=== PATIENT | male | born 1985 | race Caucasian/White ===

== ENCOUNTER 2018-07-24 21:13 | Emergency (ER) | payer BC, OTHER ==
--- NOTE | 2018-07-24 21:25 | PDOC ---
History of Present Illness - General History Source: Patient Exam Limitations: No Limitations - History of Present Illness Initial Comments: 07/24/18 21:49 The patient is a 33 year old male, with a significant PMH of acid reflux, who presents to the emergency department with dysphagia that began tonight. The patient states he was at a [employer] restaurant with his family when he choked on some rice. The patient states he vomited 3x and noticed rice came up. He currently reports a discomfort to his esophagus and feels like there is a lump in his throat. He also notes difficulty drinking water. The patient denies chest pain, shortness of breath, headache and dizziness.Denies fever, chills, nausea, vomit, diarrhea and constipation. Allergies: NKDA Past surgical history: None reported Social history: Drinks alcohol socially but denies alcohol and recreational use PCP:David Raya <Estuardo Roberto - Last Filed: 07/24/18 22:37> <Gunjan Hernandez - Last Filed: 07/25/18 04:09> - General Chief Complaint: Dysphagia Stated Complaint: FEELS SOMETHING STUCK IN THROAT Time Seen by Provider: 07/24/18 21:16 Past History <Estuardo Roberto - Last Filed: 07/24/18 22:37> - Past Medical History Asthma: No COPD: No Diabetes: No HTN: No Hypercholesterolemia: No - Immunization History Td Vaccination: No - Suicide/Smoking/Psychosocial Hx Smoking Status: No Smoking History: Never smoked Number of Cigarettes Smoked Daily: 0 <Gunjan Hernandez - Last Filed: 07/25/18 04:09> - Past Medical History Allergies/Adverse Reactions: Allergies Allergy/AdvReac Type Severity Reaction Status Date / Time No Known Allergies Allergy Unverified 07/14/12 01:46 Home Medications: Ambulatory Orders Pantoprazole Sodium [Protonix -] 40 mg PO DAILY #20 tablet.ec 07/24/18 Review of Systems - Review of Systems Able to Perform ROS?: Yes Comments:: 07/24/18 21:50 GENERAL/CONSTITUTIONAL: No fever or chills. No weakness. HEAD, EYES, EARS, NOSE AND THROAT: +Throat discomfort.No change in vision. No ear pain or discharge. CARDIOVASCULAR: No chest pain or shortness of breath. RESPIRATORY: No cough, wheezing, or hemoptysis. GASTROINTESTINAL: No nausea, vomiting, diarrhea or constipation. GENITOURINARY: No dysuria, frequency, or change in urination. MUSCULOSKELETAL: No joint or muscle swelling or pain. No neck or back pain. SKIN: No rash NEUROLOGIC: No headache, vertigo, loss of consciousness, or change in strength/ sensation. ENDOCRINE: No increased thirst. No abnormal weight change. HEMATOLOGIC/LYMPHATIC: No anemia, easy bleeding, or history of blood clots. ALLERGIC/IMMUNOLOGIC: No hives or skin allergy. <Estuardo Roberto - Last Filed: 07/24/18 22:37> *Physical Exam - Vital Signs Last Vital Signs Temp Pulse Resp BP Pulse Ox 97.9 F 90 16 142/94 100 07/24/18 21:16 07/24/18 21:16 07/24/18 21:16 07/24/18 21:16 07/24/18 21:16 - Physical Exam Comments: 07/24/18 21:50 GENERAL: Awake, alert, and fully oriented, in no acute distress HEAD: No signs of trauma EYES: PERRLA, EOMI, sclera anicteric, conjunctiva clear ENT: Auricles normal inspection, hearing grossly normal, nares patent, oropharynx clear without exudates. Moist mucosa NECK: Normal ROM, supple, no lymphadenopathy, JVD, or masses LUNGS: Breath sounds equal, clear to auscultation bilaterally. No wheezes, and no crackles. No stridor. HEART: Regular rate and rhythm, normal S1 and S2, no murmurs, rubs or gallops ABDOMEN: Soft, nontender, normoactive bowel sounds. No guarding, no rebound. No masses EXTREMITIES: Normal range of motion, no edema. No clubbing or cyanosis. No cords, erythema, or tenderness NEUROLOGICAL: Cranial nerves II through XII grossly intact. Normal speech, normal gait SKIN: Warm, Dry, normal turgor, no rashes or lesions noted. <Estuardo Roberto - Last Filed: 07/24/18 22:37> - Vital Signs Last Vital Signs Temp Pulse Resp BP Pulse Ox 97.9 F 90 16 142/94 100 07/24/18 21:16 07/24/18 21:16 07/24/18 21:16 07/24/18 21:16 03/02/19 21:16 <Gunjan Hernandez - Last Filed: 07/25/18 04:09> Moderate Sedation - Procedure Monitoring Vital Signs: Procedure Monitoring Vital Signs Temperature 97.9 F 07/24/18 21:16 Pulse Rate 90 07/24/18 21:16 Respiratory Rate 16 07/24/18 21:16 Blood Pressure 142/94 07/24/18 21:16 O2 Sat by Pulse Oximetry (%) 100 07/24/18 21:16 <Estuardo Roberto - Last Filed: 07/24/18 22:37> - Procedure Monitoring Vital Signs: Procedure Monitoring Vital Signs Temperature 97.9 F 07/24/18 21:16 Pulse Rate 90 07/24/18 21:16 Respiratory Rate 16 07/24/18 21:16 Blood Pressure 142/94 07/24/18 21:16 O2 Sat by Pulse Oximetry (%) 100 07/24/18 21:16 <Gunjan Hernandez - Last Filed: 07/25/18 04:09> Medical Decision Making - Medical Decision Making Documentation has been prepared under my direction and personally reviewed by me in its entirety. I attest that this documented accurately reflects all work, treatment, procedures and medical decision making performed by me. As noted above, this 33-year-old man with a history GERD presents with odynophagia after near choking episode just prior to presentation. Patient was able to swallow his saliva on presentation and during the time he was here in the emergency room he demonstrated that he could drink water easily without regurgitation/vomiting. The mild discomfort that he had in the suprasternal area gradually improved. Exam as noted. Patient has never been seen by loaf counter for his GERD or for his previous milder near choking episodes. Dr. Moura is production trainer for gastroenterology; she is contacted and case discussed with her. She recommends PPI (Protonix to be given now and course of daily Protonix prescription is suggested. She can follow-up with the patient in the office. Recommendations discussed with the patient. Protonix 40 mg by mouth administered now. Prescription sent to his pharmacy for Protonix 40 mg daily (# 20 dispensed). Meanwhile, the patient should eat a soft, bland diet for the next 2-3 days. He should plan on seeing in the near future and return to the ER if he has any worsening of pain, any other episodes of food impaction or fever/vomiting <Gunjan Hernandez Mandi - Last Filed: 07/25/18 04:09> *DC/Admit/Observation/Transfer <Estuarod Roberto - Last Filed: 07/24/18 22:37> <Gunjan Hernandez Mandi - Last Filed: 07/25/18 04:09> Diagnosis at time of Disposition: Odynophagia GERD (gastroesophageal reflux disease) Qualifiers: Esophagitis presence: with esophagitis Qualified Code(s): K21.0 - Gastro- esophageal reflux disease with esophagitis - Discharge Dispostion Disposition: HOME Condition at time of disposition: Stable - Prescriptions Prescriptions: Pantoprazole Sodium [Protonix -] 40 mg PO DAILY #20 tablet.ec - Referrals Referrals: David Raya MD [Primary Care Provider] - Ivonne Moura DO [Staff Physician] - 1 week - Patient Instructions Printed Discharge Instructions: DI for Gastroesophageal Reflux Disease (GERD) Additional Instructions: Soft, bland diet for the next 2-3 days Protonix 40 mg daily until seen by loaf counter Return to ER immediately if you have severe difficulty swallowing or have more severe pain Follow-up with loaf counter () within the next week; call office on Thursday, 07/26 - Post Discharge Activity
[2018-07-24 21:35] VITALS: BP 142/94; PULSE 90; TEMP 97.9; BMI 26.6
[2018-07-24] MEDS ORDERED: PANTOPRAZOLE 40 MG TABLET (FP) PO ONE (22:35)
[2018-07-24] MEDS ORDERED: PANTOPRAZOLE 40 MG TABLET (FP) ONE (22:40)
== END 2018-07-24 22:49 | disposition home or self-care (01) ==
LOC: FER 21:13
DX: R13.10 Dysphagia, unspecified (principal); K21.0 Gastro-esophageal reflux disease with esophagitis
CPT/HCPCS: 99281-25

== ENCOUNTER 2018-08-02 09:25 | Day surgery (SDC) | payer BC ==
[2018-07-30 09:52] VITALS: BMI 25.8
[2018-08-02] MEDS ORDERED: PROPOFOL 20 ML ONE ×2 (10:23)
[2018-08-02 12:43] VITALS: BP 127/82; PULSE 78; TEMP 98
--- NOTE | 2018-08-04 16:29 | PATH ---
Surgical Pathology Report Patient Name: DAVID BAÑUELOS [facility]. Rec. #: [id number] /Age/Gender: 1985 (Age: 33) / M Account: [id number] Location: [facility] Taken: 08/02/2018 Received: 08/02/2018 Reported: 08/04/2018 Physicians: Alonzo Smith M.D. Specimen(s) Received A: DUODENUM B: ANTRUM C: ESOPHAGUS Clinical History Dysphagia Postoperative diagnosis: Gastritis, dysphagia Final Diagnosis A. DUODENUM, BIOPSY: DUODENAL MUCOSA WITHOUT SIGNIFICANT PATHOLOGIC FINDINGS. B. STOMACH, ANTRUM, BIOPSY: GASTRIC ANTRAL MUCOSA WITH MILD CHRONIC GASTRITIS. IMMUNOHISTOCHEMICAL STAIN FOR H. PYLORI IS NEGATIVE. C. ESOPHAGUS, BIOPSY: ESOPHAGEAL SQUAMOUS MUCOSA WITH MODERATE TO SEVERE BASAL CELL HYPERPLASIA AND MARKEDLY INCREASED INTRAEPITHELIAL EOSINOPHILS (FOCALLY UP TO 35 EOSINOPHILS IN ONE HPF). SEE COMMENT. Comment: The biopsy shows a patchy increase in intraepithelial eosinophils with a peak of 35 eosinophils in one HPF. Differential diagnosis includes severe reflux esophagitis and eosinophilic esophagitis, among other conditions. Suggest clinical and endoscopic correlation. Electronically Signed Ivonne Herozg M.D. Gross Description A. Received in formalin, labeled "biopsy duodenum" are 2 bruner, irregular portions of soft tissue averaging 0.4 cm. in greatest dimension. The specimens are submitted in toto in one cassette. B. Received in formalin, labeled "biopsy antrum" are 2 bruner, irregular portions of soft tissue measuring 0.5 and 0.6 cm. in greatest dimension. The specimens are submitted in toto in one cassette. C. Received in formalin, labeled "biopsy esophagus" are 2 bruner, irregular portions of soft tissue measuring 0.4 and 0.5 cm. in greatest dimension. The specimens are submitted in toto in one cassette. DL/08/03/2018 saudi08/03/2018
== END 2018-08-02 12:52 | disposition home or self-care (01) ==
LOC: FASU-ENDO 09:25
PROVIDERS: ATTEND Internal Medicine Gastroenterology
PROC: 0DB68ZX Excision of Stomach, Via Natural or Artificial Opening Endoscopic, Diagnostic (ICD-10-PCS; 2018-08-02)
PROC: 0DB58ZX Excision of Esophagus, Via Natural or Artificial Opening Endoscopic, Diagnostic (ICD-10-PCS; 2018-08-02)
PROC: 0D748DZ Dilation of Esophagogastric Junction with Intraluminal Device, Via Natural or Artificial Opening Endoscopic (ICD-10-PCS; 2018-08-02)
PROC: 0DB98ZX Excision of Duodenum, Via Natural or Artificial Opening Endoscopic, Diagnostic (ICD-10-PCS; principal; 2018-08-02 11:39)
DX: K29.50 Unspecified chronic gastritis without bleeding (principal); K22.8 Other specified diseases of esophagus; K20.0 Eosinophilic esophagitis; R13.10 Dysphagia, unspecified
CPT/HCPCS: 88305-TC; 88342-TC